=== PATIENT | male | born 1960 | race Caucasian/White ===

== ENCOUNTER 2025-01-10 11:22 | Emergency (ER) | payer MEDICARE ==
[2025-01-10] MEDS ORDERED: Ketorolac Tromethamine 30 MG (1 mL) VIAL ONE (11:37)
== END 2025-01-10 12:54 | disposition home or self-care (01) ==
LOC: MADERS 11:22
DX: S39.012A Strain of muscle, fascia and tendon of lower back, initial encounter (principal); X58.XXXA Exposure to other specified factors, initial encounter
CPT/HCPCS: J1885; J2919; 96372; 99283